=== PATIENT | female | born 1990 | race Caucasian/White ===

== ENCOUNTER 2018-11-25 14:03 | Emergency (ER) | payer OTHER ==
--- NOTE | 2018-11-25 15:00 | ER Document Report ---
ED Medical Screen (RME) - General Chief Complaint: Abdominal Pain Stated Complaint: ABDOMINAL PAIN Time Seen by Provider: 11/25/18 14:53 TRAVEL OUTSIDE OF THE [place] IN LAST 30 DAYS: No - Related Data Allergies/Adverse Reactions: No Known Allergies Allergy (Verified 11/25/18 14:03) Past Medical History Renal/ Medical History: Denies: Hx Peritoneal Dialysis Past Surgical History: Reports: Hx Section - x2 Physical Exam - Vital signs Vitals: Temp Pulse Resp BP Pulse Ox 97.7 F 101 H 16 128/81 H 99 11/25/18 14:06 11/25/18 14:06 11/25/18 14:06 11/25/18 14:06 11/25/18 14:06 Course - Re-evaluation Re-evalutation: 11/25/18 15:00 27-year-old female without known medical problems that presents for evaluation of lower abdominal pain. I have seen and evaluated this patient in rapid medical screening exam, there will require reexamination and further assessment with possible diagnostics and disposition determination by secondary provider. - Vital Signs Vital signs: Temp Pulse Resp BP Pulse Ox 97.7 F 101 H 16 128/81 H 99 11/25/18 14:06 11/25/18 14:06 11/25/18 14:06 11/25/18 14:06 11/25/18 14:06 Doctor's Discharge - Discharge Referrals: ETHAN SHAH MD [Primary Care Provider] - Follow up as needed
[2018-11-25 15:48] LABS: APPEARANCE,URINE CLOUDY; BILIRUBIN,URINE NEGATIVE (NEGATIVE); COLOR,URINE YELLOW; GLUCOSE, URINE NEGATIVE (NEGATIVE); KETONES,URINE NEGATIVE (NEGATIVE); LEUKOCYTE ESTERASE,URINE MODERATE (NEGATIVE); NITRITE,URINE POSITIVE (NEGATIVE); PROTEIN,URINE NEGATIVE (NEGATIVE); URINE SPECIFIC GRAVITY 1.014; UROBILINOGEN,URINE NEGATIVE mg/dL (<2.0)
--- NOTE | 2018-11-25 17:05 | RADIOLOGY REPORT (SQ) ---
EXAM DESCRIPTION: U/S NON OB PEL TV W/DOPPLER COMPLETED DATE/TIME: 11/25/2018 4:30 pm REASON FOR STUDY: probable ruptured cyst COMPARISON: None. TECHNIQUE: Dynamic and static grayscale images acquired of the pelvis via transvaginal approach and recorded on PACS. Additional selected color Doppler and spectral images recorded. LIMITATIONS: None. FINDINGS: UTERUS: The uterus measures 9.1 x 4.7 x 4.9 cm. . ENDOMETRIAL STRIPE: The endometrial stripe measures 1.2 cm. CERVIX: The cervix measures 3.6 cm. No nabothian cysts. RIGHT OVARY AND DOPPLER: Nonvisualized. LEFT OVARY AND DOPPLER: Nonvisualized. FREE FLUID: Free fluid in cul de sac. IMPRESSION: Small amount of free fluid posterior cul de sac. Otherwise ,normal transvaginal pelvic ultrasound TECHNICAL DOCUMENTATION: JOB ID: [id number] [employer]- All Rights Reserved Rev-04/07 Reading location - IP/workstation name: [email or web address]
[2018-11-25] MEDS ORDERED: CEPHALEXIN 500 MG CAPSULE PO ONE (17:22)
[2018-11-25] MEDS ORDERED: ONDANSETRON ODT 4 MG TAB (6 TAB/ER DISP) PO PRN (17:32)
--- NOTE | 2018-11-25 17:38 | ER Document Report ---
ED General - General Chief Complaint: Abdominal Pain Stated Complaint: ABDOMINAL PAIN Time Seen by Provider: 11/25/18 14:53 Notes: 27-year-old female with no past medical history presents to the emergency department for bilateral adnexal pain that radiates to the suprapubic area. She states that she has had abdominal pain for 3 days with some associated nausea. She denies fevers or chills. She describes the pain as cramping. She denies any urinary symptoms. She denies chest pain or shortness of breath. She denies any abnormal vaginal discharge. She denies any other symptoms. TRAVEL OUTSIDE OF THE [place] IN LAST 30 DAYS: No - Related Data Allergies/Adverse Reactions: No Known Allergies Allergy (Verified 11/25/18 14:03) Past Medical History - Social History Smoking Status: Never Smoker Family History: None Patient has suicidal ideation: No Patient has homicidal ideation: No Renal/ Medical History: Denies: Hx Peritoneal Dialysis Past Surgical History: Reports: Hx Section - x2 Review of Systems - Review of Systems Constitutional: See HPI EENT: No symptoms reported Cardiovascular: See HPI Respiratory: See HPI Gastrointestinal: See HPI Genitourinary: See HPI Female Genitourinary: No symptoms reported Musculoskeletal: No symptoms reported Skin: No symptoms reported Hematologic/Lymphatic: No symptoms reported Neurological/Psychological: No symptoms reported Physical Exam - Vital signs Vitals: Temp Pulse Resp BP Pulse Ox 97.7 F 101 H 16 128/81 H 99 11/25/18 14:06 11/25/18 14:06 11/25/18 14:06 11/25/18 14:06 11/25/18 14:06 - Notes Notes: Reviewed vital signs and nursing note as charted by RN. CONSTITUTIONAL: Well-appearing, well-nourished, acting appropriately for age HEAD: Normocephalic, atraumatic, no swelling EYES: PERRL, Conjunctivae clear, no drainage, EOMI, no scleral icterus ENT: External ears without lesions, External auditory canal is patent, airway patent, mucous membranes pink and moist CARD: Regular rate and rhythm, no murmurs, no rubs, no gallops, symmetric pulses RESP: The lungs are clear to auscultation bilaterally, no wheezing, no rales, no rhonchi. Respiratory rate and effort are normal, normal chest excursion. No respiratory distress, no retractions, no stridor, no nasal flaring, no accessory muscle use. ABD/GI: Normal bowel sounds, non-distended, soft, tenderness to palpation bilateral adnexal area with tenderness to palpation over suprapubic area., no rebound, no guarding, no palpable organomegaly EXT: Normal ROM in all joints, non-tender to palpation, no effusions, no edema SKIN: Normal color for age and race, warm, dry, good turgor, no acute lesions noted NEURO: No facial asymmetry, moves all extremities equally, motor and sensory function intact Course - Re-evaluation Re-evalutation: 11/25/18 17:35 Patient presents with symptoms consistent with an acute cystitis. Vitals wnl. No history of fever, flank pain, or constitution symptoms to suggest ascending infection at this time. Patient is well in appearance, tolerating oral intake without difficulty. No focal abdominal tenderness to suggest acute appendicitis, biliary pathology, acute pancreatitis, tubo-ovarian abscesses, or pelvic inflammatory disease. Patient will be started on antibiotics at this time. A culture has been sent. Transvaginal ultrasound performed which showed no evidence of ovarian cysts or any other masses. There was a small amount of free fluid identified in the cul-de-sac. They will be discharged with return precautions and follow-up recommendations. 11/25/18 17:38 - Vital Signs Vital signs: Temp Pulse Resp BP Pulse Ox 97.7 F 101 H 16 128/81 H 99 11/25/18 14:06 11/25/18 14:06 11/25/18 14:06 11/25/18 14:06 11/25/18 14:06 - Laboratory Laboratory results interpreted by me: 11/25/18 15:18 Urine Blood MODERATE H Urine Nitrite POSITIVE H Ur Leukocyte Esterase MODERATE H Discharge - Discharge Clinical Impression: Urinary tract infection Qualifiers: Urinary tract infection type: acute cystitis Hematuria presence: without hematuria Qualified Code(s): N30.00 - Acute cystitis without hematuria Condition: Good Disposition: HOME, SELF-CARE Instructions: Abdominal Pain ([facility]), Urinary Tract Infection ([facility]), Cephalexin ([facility]) Additional Instructions: Your urine shows findings consistent with a urinary tract infection. Please take all the antibiotics as directed even if your symptoms have improved. Please follow-up with your primary care physician as needed. Return to emergency room if you develop fever >101F, persistent vomiting, become lethargic, have severe pain in your sides, or any other symptoms that are concerning to you. Prescriptions: Cephalexin Monohydrate [Keflex 500 mg Capsule] 500 mg PO BID 7 Days capsule Referrals: ETHAN SHAH MD [Primary Care Provider] - Follow up as needed
[2018-11-25 18:13] VITALS: BP 125/78
== END 2018-11-25 18:13 | disposition home or self-care (01) ==
LOC: ER 14:03
DX: N30.00 Acute cystitis without hematuria (principal); R10.9 Unspecified abdominal pain; R11.0 Nausea
CPT/HCPCS: 36415; 76830; 81001; 84702; 87086; 87088; 87186; 93976; 99284

== ENCOUNTER → 2018-12-07 | Outpatient (CLI) | payer OTHER | LOC: RAD 14:02 | PROVIDERS: ATTEND Specialist | DX: Z53.9 Procedure and treatment not carried out, unspecified reason (principal) ==

== ENCOUNTER → 2019-02-02 | Outpatient (CLI) | payer OTHER ==
--- NOTE | 2019-02-02 16:36 | RADIOLOGY REPORT (SQ) ---
EXAM DESCRIPTION: HYSTEROSALPINGOGRAM; HYSTERO CATH/INJECTION COMPLETED DATE/TIME: 02/02/2019 4:02 pm REASON FOR STUDY: INFERTILITY COMPARISON: None. PROCEDURE: PRE-PROCEDURE: Procedure was explained to the patient. She was told to expect cramping du ring the procedure, and possible spotting post procedure. PROCEDURE: The cervix was prepped in sterile fashion. Under direct visual inspection, the cervix was cannulated with the hysterosalpingogram catheter and contrast injected. TECHNIQUE: Temporal fluoroscopic images acquired during the procedure stored to PACS. FLUOROSCOPY TIME: 21 seconds 3 images saved to PACS. LIMITATIONS: None. FINDINGS: UTERUS: No identified anomalies. No synechia. RIGHT ADNEXA: Normal size fallopian tube. Free spill of contrast into the peritoneal cavity. LEFT ADNEXA: Normal size fallopian tube. Free spill of contrast into the peritoneal cavity. POST PROCEDURE: The patient tolerated the procedure with no adverse effects. IMPRESSION: NORMAL HYSTEROSALPINGOGRAM. COMMENT: Quality ID 145: Final reports for procedures using fluoroscopy that document radiation exp osure indices, or exposure time and number of fluorographic images (if radiation exposure indices are not available) TECHNICAL DOCUMENTATION: JOB ID: [id number] [employer]- All Rights Reserved Reading location - IP/workstation name: [email or web address]
--- NOTE | 2019-02-02 16:36 | RADIOLOGY REPORT (SQ) ---
EXAM DESCRIPTION: HYSTEROSALPINGOGRAM; HYSTERO CATH/INJECTION COMPLETED DATE/TIME: 02/02/2019 4:02 pm REASON FOR STUDY: INFERTILITY COMPARISON: None. PROCEDURE: PRE-PROCEDURE: Procedure was explained to the patient. She was told to expect cramping du ring the procedure, and possible spotting post procedure. PROCEDURE: The cervix was prepped in sterile fashion. Under direct visual inspection, the cervix was cannulated with the hysterosalpingogram catheter and contrast injected. TECHNIQUE: Temporal fluoroscopic images acquired during the procedure stored to PACS. FLUOROSCOPY TIME: 21 seconds 3 images saved to PACS. LIMITATIONS: None. FINDINGS: UTERUS: No identified anomalies. No synechia. RIGHT ADNEXA: Normal size fallopian tube. Free spill of contrast into the peritoneal cavity. LEFT ADNEXA: Normal size fallopian tube. Free spill of contrast into the peritoneal cavity. POST PROCEDURE: The patient tolerated the procedure with no adverse effects. IMPRESSION: NORMAL HYSTEROSALPINGOGRAM. COMMENT: Quality ID 145: Final reports for procedures using fluoroscopy that document radiation exp osure indices, or exposure time and number of fluorographic images (if radiation exposure indices are not available) TECHNICAL DOCUMENTATION: JOB ID: [id number] [employer]- All Rights Reserved Reading location - IP/workstation name: [email or web address]
== END ==
LOC: RAD 12:56
PROVIDERS: ATTEND Specialist
DX: N97.9 Female infertility, unspecified (principal)
CPT/HCPCS: 58340; 74740

== ENCOUNTER 2019-04-01 17:31 | Emergency (ER) | payer OTHER ==
--- NOTE | 2019-04-01 17:59 | ER Document Report ---
ED General - General Chief Complaint: Abdominal Cramping Stated Complaint: ABDOMINAL CRAMPING Time Seen by Provider: 04/01/19 17:54 Primary Care Provider: ETHAN SHAH MD [Primary Care Provider] - Follow up in 3-5 days TRAVEL OUTSIDE OF THE [place] IN LAST 30 DAYS: No - HPI Notes: Patient is a 28-year-old female G3, P2 approximately 5 weeks who presents complaining of lower pelvic cramping over the last day and a half. Patient states that she was told by her doctor to come get evaluated. She is otherwise eating and drinking without difficulty. She is urinating normally and having normal bowel movements. No vaginal discharge, odor, or bleeding. Denies drug allergies. No previous history of miscarriage or . Denies any headache, fever, URI, sore throat, chest pain, palpitations, syncope, cough, shortness of breath, wheeze, dyspnea, nausea/vomiting/diarrhea, urinary retention, dysuria, hematuria, back pain, or rash. - Related Data Allergies/Adverse Reactions: No Known Allergies Allergy (Verified 04/01/19 17:31) Past Medical History - Social History Smoking Status: Never Smoker Family History: None Patient has suicidal ideation: No Patient has homicidal ideation: No Renal/ Medical History: Denies: Hx Peritoneal Dialysis Past Surgical History: Reports: Hx Section - x2 Review of Systems - Review of Systems -: Yes All other systems reviewed and negative Physical Exam - Vital signs Vitals: Temp Pulse Resp BP Pulse Ox 99.1 F 112 H 18 148/89 H 100 04/01/19 17:32 04/01/19 17:32 04/01/19 17:32 04/01/19 17:32 04/01/19 17:32 - Notes Notes: PHYSICAL EXAMINATION: GENERAL: Well-appearing, well-nourished and in no acute distress. LUNGS: Breath sounds clear to auscultation bilaterally and equal. No wheezes rales or rhonchi. HEART: Regular rate and rhythm without murmurs, rubs, gallops. ABDOMEN: Soft, nontender, nondistended abdomen. No guarding, no rebound. No masses appreciated. Normal bowel sounds present. No CVA tenderness bilaterally. Musculoskeletal: FROM to passive/active. Strength 5+/5. Extremities: No cyanosis, clubbing, or edema b/l. Peripheral pulses 2+. Capillary refill less than 3 seconds. NEUROLOGICAL: Normal speech, normal gait. PSYCH: Normal mood, normal affect. SKIN: Warm, Dry, normal turgor, no rashes or lesions noted. Course - Re-evaluation Re-evalutation: 04/01/19 19:10 Patient is an afebrile, well-hydrated, 28-year-old female who presents to the ED with cramping in early . Vitals are acceptable without any significant tachycardia, tachypnea, or hypoxia. PE is otherwise unremarkable. UA unremarkable for acute pathology. HCG low at 207. TVUS unremarkable at this time due to most likely early preg vs spont miscarriage. Patient is nontoxic- appearing is tolerating p.o. without any difficulties. No other labs or imaging warranted at this time based on H&P. Low suspicion/risk for acute appendicitis, bowel obstruction, acute cholecystitis, acute cholangitis, perforated diverticulitis, incarcerated hernia, pancreatitis, perforated ulcer, peritonitis, sepsis, pelvic inflammatory disease, ectopic (within reason at this time-cannot adequately r/o), tubo-ovarian abscess, ovarian torsion, or other systemic emergent condition at this time. Patient is aware that her condition can change from initial presentation and she needs to monitor symptoms closely and seek medical attention if any acute changes. She has no abd pain or tenderness. Recheck HCG in 2-3 days, may need repeat US next week as well. Conservative measures otherwise for symptoms. Recheck with your PCM/OBGYN in 3-5 days. Return to the ED with any worsening/concerning symptoms otherwise as reviewed in discharge. Patient is in agreement. - Vital Signs Vital signs: Temp Pulse Resp BP Pulse Ox 99.1 F 112 H 18 148/89 H 100 04/01/19 17:32 04/01/19 17:32 04/01/19 17:32 04/01/19 17:32 04/01/19 17:32 - Laboratory Laboratory results interpreted by me: 04/01/19 04/01/19 18:00 18:00 Beta HCG, Quant 207.91 H Urine Blood SMALL H Discharge - Discharge Clinical Impression: Pelvic cramping Condition: Stable Disposition: HOME, SELF-CARE Additional Instructions: As reviewed, your hormone level does indicate that you are , but very early vs you having a spontaneous miscarriage. The ultrasound did not show any intrauterine at this time. You will need to have your hormone level rechecked in 2 to 3 days and possibly another ultrasound in the next 1 to 2 weeks. Maintain fluid intake Proper hygienic technique Keep the skin clean Tylenol/ibuprofen as needed F/u with your PCM/OBGYN in 3-5 days for a recheck Return to the ED with any development of AWGNER/fever, trouble with vision, eye redness, worsening pain, urethral discharge, urinary retention, blood in the urine, flank pain, abdominal pain, n/v, Chest Pain, shortness of breath, joint pains, trouble breathing, or any other worsening/concerning symptoms as needed otherwise. Forms: Elevated Blood Pressure, Follow-Up Laboratory Testing Referrals: ETHAN SHAH MD [Primary Care Provider] - Follow up in 3-5 days
[2019-04-01 18:26] LABS: APPEARANCE,URINE SLIGHTLY-CLOUDY; BILIRUBIN,URINE NEGATIVE (NEGATIVE); COLOR,URINE STRAW; GLUCOSE, URINE NEGATIVE (NEGATIVE); KETONES,URINE NEGATIVE (NEGATIVE); LEUKOCYTE ESTERASE,URINE NEGATIVE (NEGATIVE); NITRITE,URINE NEGATIVE (NEGATIVE); PROTEIN,URINE NEGATIVE (NEGATIVE); URINE SPECIFIC GRAVITY 1.003; UROBILINOGEN,URINE NEGATIVE mg/dL (<2.0)
--- NOTE | 2019-04-01 18:50 | RADIOLOGY REPORT (SQ) ---
EXAM DESCRIPTION: U/S OB TRANSVAG W/DOPPLER COMPLETED DATE/TIME: 04/01/2019 6:27 pm REASON FOR STUDY: preg approx 5wks, cramping COMPARISON: None. TECHNIQUE: Transvaginal static and realtime grayscale images acquired of the pelvis. Additional santa cted spectral and color Doppler images recorded. All images stored on PACs. CLINICAL AGE: 4 week 5 day BHCG: Not available LIMITATIONS: None. FINDINGS: UTERUS: No visualized intrauterine . RIGHT ADNEXA: Normal ovary with normal vascular flow. No adnexal free fluid. No adnexal masses. LEFT ADNEXA: Normal vascular flow. No adnexal free fluid. 2.6 cm probable cyst. No suspicious features. FREE FLUID: None. OTHER: No other significant finding. IMPRESSION: NO VISUALIZED INTRA- OR EXTRAUTERINE . bHCG LEVEL TOO LOW TO EXPECT VISUALIZATION OF . ECTOPIC CANNOT BE EXCLUDED. FOLLOW-UP ULTRASOUND AND SERIAL BHCG LEVELS STRONGLY RECOMMENDED TO ACCURATELY ASSESS STATU S. TECHNICAL DOCUMENTATION: JOB ID: [id number]- All Rights Reserved Reading location - IP/workstation name: [email or web address]
[2019-04-01 19:31] VITALS: BP 136/74
== END 2019-04-01 19:31 | disposition home or self-care (01) ==
LOC: ER 17:31
DX: O26.899 Other specified pregnancy related conditions, unspecified trimester (principal); R10.2 Pelvic and perineal pain; Z3A.00 Weeks of gestation of pregnancy not specified
CPT/HCPCS: 36415; 76817; 81001; 84702; 93976; 99284

== ENCOUNTER 2019-10-30 16:30 | Outpatient (CLI) | payer OTHER ==
[2019-10-30 17:03] LABS: APPEARANCE,URINE SLIGHTLY-CLOUDY; BILIRUBIN,URINE NEGATIVE (NEGATIVE); COLOR,URINE STRAW; GLUCOSE, URINE NEGATIVE (NEGATIVE); KETONES,URINE 20 mg/dL (NEGATIVE); LEUKOCYTE ESTERASE,URINE NEGATIVE (NEGATIVE); NITRITE,URINE NEGATIVE (NEGATIVE); PROTEIN,URINE NEGATIVE (NEGATIVE); URINE SPECIFIC GRAVITY 1.002; UROBILINOGEN,URINE NEGATIVE mg/dL (<2.0)
[2019-10-30 17:15] LABS: URINE AMPHETAMINES SCREEN NEGATIVE; URINE BARBITURATES SCREEN NEGATIVE; URINE BENZODIAZEPINES SCREEN NEGATIVE; URINE COCAINE SCREEN NEGATIVE; URINE MARIJUANA (THC) SCREEN NEGATIVE; URINE METHADONE SCREEN NEGATIVE; URINE PHENCYCLIDINE SCREEN NEGATIVE
[2019-10-30] MEDS ORDERED: HYDROXYZINE PAMOATE 50 MG CAPSULE ONE (18:23)
[2019-10-30] MEDS ORDERED: HYDROXYZINE PAMOATE 50 MG CAPSULE PO ONE (18:25)
== END 2019-10-30 18:33 | disposition home or self-care (01) ==
LOC: LC 16:30
PROVIDERS: ATTEND Obstetrics & Gynecology
PROC: 4A1HXCZ Monitoring of Products of Conception, Cardiac Rate, External Approach (ICD-10-PCS; principal; 2019-10-30)
DX: O99.283 Endocrine, nutritional and metabolic diseases complicating pregnancy, third trimester (principal); E86.0 Dehydration; Z3A.34 34 weeks gestation of pregnancy
CPT/HCPCS: 80307; 81001; 84112

== ENCOUNTER 2019-11-15 06:04 | Inpatient (IN) | payer OTHER ==
[2019-11-27 12:11] LABS: ABSOLUTE LYMPHOCYTES (AUTO) 2.2 10^3/uL (0.5-4.7); ABSOLUTE MONOCYTES (AUTO) 0.5 10^3/uL (0.1-1.4); ABSOLUTE NEUT (AUTO) 6.4 10^3/uL (1.7-8.2); BASOPHILS % (AUTO) 0.1 % (0-2); EOSINOPHILS % (AUTO) 0.3 % (0-6); HEMATOCRIT 36.4 % (36.0-47.0); HEMOGLOBIN 12.4 g/dL (12.0-15.5); LYMPHOCYTES % (AUTO) 23.9 % (13-45); MEAN CORPUSCULAR HEMOGLOBIN 27.4 pg (27.0-33.4); MEAN CORPUSCULAR VOLUME 80 fl (80-97); MONOCYTES % (AUTO) 5.4 % (3-13); PLATELET COUNT 262 10^3/uL (150-450); RED BLOOD COUNT 4.53 10^6/uL (3.72-5.28); RED CELL DISTRIBUTION WIDTH 15.7 % (11.5-14.0); SEGMENTED NEUTROPHILS % (AUTO) 70.3 % (42-78); TOTAL CELLS COUNTED % (AUTO) 100 %; WHITE BLOOD COUNT 9.1 10^3/uL (4.0-10.5)
[2019-11-27 12:17] LABS: APPEARANCE,URINE CLEAR; BILIRUBIN,URINE NEGATIVE (NEGATIVE); COLOR,URINE STRAW; GLUCOSE, URINE NEGATIVE (NEGATIVE); KETONES,URINE NEGATIVE (NEGATIVE); LEUKOCYTE ESTERASE,URINE NEGATIVE (NEGATIVE); NITRITE,URINE NEGATIVE (NEGATIVE); PROTEIN,URINE NEGATIVE (NEGATIVE); URINE SPECIFIC GRAVITY 1.003; UROBILINOGEN,URINE NEGATIVE mg/dL (<2.0)
[2019-11-27 12:43] LABS: URINE AMPHETAMINES SCREEN NEGATIVE; URINE BARBITURATES SCREEN NEGATIVE; URINE BENZODIAZEPINES SCREEN NEGATIVE; URINE COCAINE SCREEN NEGATIVE; URINE MARIJUANA (THC) SCREEN NEGATIVE; URINE METHADONE SCREEN NEGATIVE; URINE PHENCYCLIDINE SCREEN NEGATIVE
[2019-11-28] MEDS ORDERED: LIDOCAINE 0.5% INJ-PF (5 MG/ML) 50 ML SDV SUBCUT PRN (05:00)
[2019-11-28] MEDS ORDERED: CEFAZOLIN SODIUM 2 GM in DEXTROSE 5%-WATER 100 ML IV PRN (05:00)
[2019-11-28] MEDS: RINGERS SOLUTION,LACTATED 1,000 ML IV PRN ×3 (06:15→17:27)
[2019-11-28] MEDS ORDERED: MIDAZOLAM 2 MG/2 ML INJ ONE (07:13)
[2019-11-28] MEDS ORDERED: OXYTOCIN 10 UNIT/ML VIAL ONE (07:13)
[2019-11-28] MEDS ORDERED: FENTANYL CITRATE INJ/PF 100 MCG/2 ML AMPUL ONE (07:13)
[2019-11-28] MEDS ORDERED: OXYTOCIN/NORMAL SALINE 20 UNIT/1,000 ML RTUINJ ONE (07:14)
[2019-11-28] MEDS ORDERED: ACETAMINOPHEN 1,000 MG/100 ML RTUPB IV ONE (07:14)
[2019-11-28] MEDS ORDERED: ONDANSETRON HCL INJ/PF 4 MG/2 ML SDV ONE (07:14)
[2019-11-28] MEDS ORDERED: LIDOCAINE 2% INJ-PF (20 MG/ML) 10 ML AMPUL ONE ×2 (07:15)
[2019-11-28] MEDS ORDERED: ONDANSETRON HCL INJ/PF 4 MG/2 ML SDV IV PRN (07:29)
[2019-11-28] MEDS ORDERED: PROMETHAZINE HCL INJ 25 MG/1 ML VIAL IV PRN ×2 (07:29→08:59)
[2019-11-28] MEDS ORDERED: MORPHINE SULFATE 10 MG/ML INJ IV PRN (07:29)
[2019-11-28] MEDS ORDERED: OXYCODONE-ACETAMINOPHEN 5-325 MG TABLET PO PRN ×3 (07:29→08:59)
[2019-11-28] MEDS ORDERED: FENTANYL CITRATE INJ/PF 100 MCG/2 ML AMPUL IV PRN ×3 (07:29)
[2019-11-28] MEDS ORDERED: DIPHENHYDRAMINE HCL 50 MG/ML VIAL IV PRN (07:29)
[2019-11-28] MEDS ORDERED: DIPH/PERTUSS(ACELL)/TETANUS VAC/PF 0.5 ML SYR (>=10YO) IM PRN (08:59)
[2019-11-28] MEDS ORDERED: HYDROMORPHONE HCL INJ/PF 2 MG/ML AMPULE IV PRN (08:59)
[2019-11-28] MEDS ORDERED: RINGERS SOLUTION,LACTATED 1,000 ML IV PRN (08:59)
[2019-11-28] MEDS ORDERED: OXYTOCIN/NORMAL SALINE 20 UNIT/1,000 ML RTUINJ IV PRN (08:59)
[2019-11-28] MEDS ORDERED: MEASLES,MUMPS&RUBELLA VACC/PF 0.5 ML VIAL SUBCUT PRN (08:59)
[2019-11-28] MEDS ORDERED: ACETAMINOPHEN 325 MG TABLET PO PRN (08:59)
[2019-11-28] MEDS ORDERED: ACETAMINOPHEN 1,000 MG/100 ML RTUPB IV PRN (08:59)
--- NOTE | 2019-11-28 09:02 | PDOC DELIVERY SUMMARY ---
Delivery Summary - Maternal Hx : III Hx # Term Pregnancies: 3 SUKHI: 12/04/19 Ruptured Membranes: AROM Time of Rupture: 08:22 Fluids: Clear - Delivery Presentation: Vertex Heart Rate Monitoring: Done Pre-Operatively Support Person Present: Yes Location: OR : Scheduled, Repeat Placenta: Within Normal Limits Delivery of Placenta Date: 11/28/19 Delivery of Placenta Time: 08:24 - Medications Type of Anesthesia:: Spinal - Assess and Care Baby 1 Male Delivery of Infant Date: 11/28/19 Delivery of Time: 08:23 at 1 minute: 8 at 5 minutes: 9 Preprinted Number On Band: [id number] Skin to Skin: Yes Skin to Skin (Mins): 2 To Nursery At: 08:31 Mode of Transport: Bassinet Delivery Weight: 4,255 Infant Delivery Length: 22 in - Delivery Personnel Radiation Protection Engineer: EMILIANA ARITA RN: BAUTISTA HEAD MD: GAVIN BOLES
--- NOTE | 2019-11-28 09:03 | Operative Report ---
Operative Report DATE OF SURGERY: 11/28/19 PREOPERATIVE DIAGNOSIS: Repeat to prevent risk from uterine rupture POSTOPERATIVE DIAGNOSIS: Same OPERATION: Repeat via low transverse uterine incision SURGEON: GAVIN BOLES ANESTHESIA: Spinal TISSUE REMOVED OR ALTERED: Placenta COMPLICATIONS: None ESTIMATED BLOOD LOSS: 250 cc INTRAOPERATIVE FINDINGS: Viable male . Some adhesions of the uterus to the anterior abdominal wall. PROCEDURE: Patient was taken to the OR and placed in supine position after her spinal anesthesia. She is prepared and draped in sterile fashion. [place] was placed for drainage of the bladder. Low transverse incision was made and carried down the level of the fascia. The fascial incision was made with knife and extended bilaterally with curved Ramos scissors. The fascia was off the rectus muscles using sharp and blunt dissection. The rectus muscles are in the midline. The peritoneum was entered without incident. Bladder blade was placed in uterine segment was identified. A low transverse incision was made creating a bladder flap. Bladder blade was placed low transverse uterine incision was made with the knife and extended with fingertips. The baby was delivered with some fundal pressure. Mouth and nose were suctioned free. The cord is doubly clamped and cut. Baby is passed off to the customer support consultant in attendance. The placenta was manually extracted with trailing membranes. The uterus was externalized wrapped in a moist lap sponge. Uterine contents wiped free. Uterus was closed with a running locking layer of 0 chromic suture using the second layer to imbricate the first completing a double layer closure of the uterus. The serosa was closed with a running 2-0 chromic stitch. The pelvis was irrigated and suctioned free of fluid the uterus was replaced in the abdomen. The abdominal wall peritoneum was closed with running 2-0 chromic stitch. Fascia was closed with a running 0 Vicryl in 2 segments. Pasha's layer was brought together with 0 plain gut stitch and the skin was closed with running subcuticular 4-0 undyed Vicryl stitch. The wound was dressed mother and baby did well.
[2019-11-28] MEDS ORDERED: DIPHENHYDRAMINE HCL 50 MG/ML VIAL ONE (09:10)
[2019-11-28] MEDS: MEPERIDINE HCL/PF INJ 25 MG/1 ML DISP.SYRIN IV PRN ×2 (09:41→10:09)
[2019-11-28] MEDS ORDERED: MEPERIDINE HCL/PF INJ 25 MG/1 ML DISP.SYRIN ONE ×2 (09:41→10:08)
[2019-11-28] MEDS ORDERED: GLYCOPYRROLATE 1 MG/5 ML VIAL ONE (10:27)
[2019-11-28] MEDS ORDERED: LIDOCAINE 2% INJ-PF (20 MG/ML) 2 ML AMPUL ONE (10:27)
[2019-11-28] MEDS ORDERED: KETOROLAC TROMETHAMINE 60 MG/2 ML SDV ONE (10:27)
[2019-11-28] MEDS ORDERED: HYDROMORPHONE HCL INJ/PF 2 MG/ML AMPULE ONE (10:53)
[2019-11-28] MEDS ORDERED: IBUPROFEN 800 MG TABLET PO SCH (12:00)
[2019-11-28] MEDS: OXYCODONE-ACETAMINOPHEN 5-325 MG TABLET PO PRN ×2 (13:32→17:20)
[2019-11-28] MEDS: DOCUSATE SODIUM 100 MG CAPSULE PO SCH ×2 (17:22→23:19)
[2019-11-28] MEDS: KETOROLAC TROMETHAMINE INJ/PF 30 MG/1 ML SDV IV SCH ×2 (21:33→23:20)
[2019-11-28] MEDS: SIMETHICONE 80 MG TAB.CHEW PO PRN (21:43)
[2019-11-28] MEDS: PRENATAL VITAMIN W DHA CAPSULE PO SCH (23:19)
[2019-11-29] MEDS: OXYCODONE-ACETAMINOPHEN 5-325 MG TABLET PO PRN ×4 (03:50→19:23)
[2019-11-29] MEDS: IBUPROFEN 800 MG TABLET PO SCH ×4 (06:08→23:06)
[2019-11-29 06:38] LABS: HEMATOCRIT 31.4 % (36.0-47.0); HEMOGLOBIN 10.6 g/dL (12.0-15.5); MEAN CORPUSCULAR HEMOGLOBIN 27.4 pg (27.0-33.4); MEAN CORPUSCULAR HGB CONC 33.7 g/dL (32.0-36.0); MEAN CORPUSCULAR VOLUME 81 fl (80-97); PLATELET COUNT 209 10^3/uL (150-450); RED BLOOD COUNT 3.87 10^6/uL (3.72-5.28); RED CELL DISTRIBUTION WIDTH 15.8 % (11.5-14.0); WHITE BLOOD COUNT 10.4 10^3/uL (4.0-10.5)
[2019-11-29] MEDS: DOCUSATE SODIUM 100 MG CAPSULE PO SCH ×2 (09:25→19:23)
[2019-11-29] MEDS: PRENATAL VITAMIN W DHA CAPSULE PO SCH (09:25)
--- NOTE | 2019-11-29 12:14 | PDOC PROGRESS REPORT ---
Subjective-OB Progress Note for:: 11/29/19 Physical Exam (OB) Vital Signs: Temp Pulse Resp BP Pulse Ox 97.7 F 99 16 140/79 H 98 11/29/19 07:54 11/29/19 07:54 11/29/19 07:54 11/29/19 07:54 11/29/19 07:54 Intake & Output 11/28/19 11/29/19 11/30/19 06:59 06:59 06:59 Intake Total 2301 1300 Output Total 2000 Balance 300 1300 Weight 108.86 kg - PIH/Pre-Eclampsia DTR's: 1 + Clonus: Negative Headache: Absent Epigastric Pain: No Visual Changes: No - Dressing Removed: No Incision: Dressing Closure Type: op site - Bilateral Tubal Ligation Dressing Removed: No - Lochia Lochia Amount: Scant < 10 ml Lochia Color: Rubra/Red - Abdomen Description: Soft Hernia Present: No Bowel Sounds: Normoactive Flatus Presence: Present Stool: No Fundal Description: Firm, Midline Fundal Height: u/u - u/2 Objective-Diagnostic Laboratory: 11/29/19 06:22 11/29/19 06:22 WBC 10.4 RBC 3.87 Hgb 10.6 L Hct 31.4 L MCV 81 MCH 27.4 MCHC 33.7 RDW 15.8 H Plt Count 209
[2019-11-29] MEDS: SIMETHICONE 80 MG TAB.CHEW PO PRN (19:28)
[2019-11-30] MEDS: OXYCODONE-ACETAMINOPHEN 5-325 MG TABLET PO PRN ×2 (03:34→10:56)
[2019-11-30] MEDS: IBUPROFEN 800 MG TABLET PO SCH ×2 (05:02→12:39)
[2019-11-30] MEDS: PRENATAL VITAMIN W DHA CAPSULE PO SCH (09:30)
[2019-11-30] MEDS: DOCUSATE SODIUM 100 MG CAPSULE PO SCH (09:31)
--- NOTE | 2019-11-30 15:17 | PDOC DISCHARGE SUMMARY ---
Impression - Admit/DC Date/PCP Admission Date/Primary Care Provider: 11/28/19 04:47 ETHAN SHAH MD Discharge Date: 11/30/19 - Discharge Diagnosis (1) Status post repeat low transverse section Is this a current diagnosis for this admission?: Yes - Additional Information Resuscitation Status: Full Code Discharge Diet: Regular Discharge Activity: Balance Activity w/Rest, No Lifting Over 10 Pounds, No Lifting/Push/Pulling, Pelvic Rest Referrals: ETHAN SHAH MD [Primary Care Provider] - Prescriptions: Ibuprofen [Motrin 800 mg Tablet] 800 mg PO Q8HP PRN #60 tablet PRN Reason: Oxycodone HCl/Acetaminophen [Percocet 5-325 mg Tablet] 1 tab PO Q4HP PRN #30 tablet PRN Reason: Home Medications: Vits96/Iron Fum/Folic [ Tablet] 1 each PO DAILY 09/02/19 Ibuprofen [Motrin 800 mg Tablet] 800 mg PO Q8HP PRN #60 tablet 11/30/19 Oxycodone HCl/Acetaminophen [Percocet 5-325 mg Tablet] 1 tab PO Q4HP PRN #30 tablet 11/30/19 HPI Gestational Age: 39 Reason(s) for Admission: Ceasarean Section-Repeat Procedures: NST Intrapartum Procedure(s): : Low Cervical, Transverse Results Laboratory Results: WBC 10.4 10^3/uL (4.0-10.5) 11/29/19 06:22 RBC 3.87 10^6/uL (3.72-5.28) 11/29/19 06:22 Hgb 10.6 g/dL (12.0-15.5) L 11/29/19 06:22 Hct 31.4 % (36.0-47.0) L 11/29/19 06:22 MCV 81 fl (80-97) 11/29/19 06:22 MCH 27.4 pg (27.0-33.4) 11/29/19 06:22 MCHC 33.7 g/dL (32.0-36.0) 11/29/19 06:22 RDW 15.8 % (11.5-14.0) H 11/29/19 06:22 Plt Count 209 10^3/uL (150-450) 11/29/19 06:22 Lymph % (Auto) 23.9 % (13-45) 11/27/19 11:00 [place] % (Auto) 5.4 % (3-13) 11/27/19 11:00 Eos % (Auto) 0.3 % (0-6) 11/27/19 11:00 Baso % (Auto) 0.1 % (0-2) 11/27/19 11:00 Absolute Neuts (auto) 6.4 10^3/uL (1.7-8.2) 11/27/19 11:00 Absolute Lymphs (auto) 2.2 10^3/uL (0.5-4.7) 11/27/19 11:00 Absolute Monos (auto) 0.5 10^3/uL (0.1-1.4) 11/27/19 11:00 Absolute Eos (auto) 0.0 10^3/uL (0.0-0.6) 11/27/19 11:00 Absolute Basos (auto) 0.0 10^3/uL (0.0-0.2) 11/27/19 11:00 Seg Neutrophils % 70.3 % (42-78) 11/27/19 11:00 Urine Color STRAW 11/27/19 11:00 Urine Appearance CLEAR 11/27/19 11:00 Urine pH 7.0 (5.0-9.0) 11/27/19 11:00 Ur Specific [place] 1.003 11/27/19 11:00 Urine Protein NEGATIVE mg/dL (NEGATIVE) 11/27/19 11:00 Urine Glucose (UA) NEGATIVE mg/dL (NEGATIVE) 11/27/19 11:00 Urine Ketones NEGATIVE mg/dL (NEGATIVE) 11/27/19 11:00 Urine Blood NEGATIVE (NEGATIVE) 11/27/19 11:00 Urine Nitrite NEGATIVE (NEGATIVE) 11/27/19 11:00 Urine Bilirubin NEGATIVE (NEGATIVE) 11/27/19 11:00 Urine Urobilinogen NEGATIVE mg/dL (<2.0) 11/27/19 11:00 Ur Leukocyte Esterase NEGATIVE (NEGATIVE) 11/27/19 11:00 Urine WBC (Auto) 2 /HPF 11/27/19 11:00 Urine RBC (Auto) 0 /HPF 11/27/19 11:00 Urine Bacteria (Auto) 2+ /HPF 11/27/19 11:00 Squamous Epi Cells Auto 1 /HPF 11/27/19 11:00 Urine Mucus (Auto) RARE /LPF 11/27/19 11:00 Urine Ascorbic Acid NEGATIVE (NEGATIVE) 11/27/19 11:00 Urine Opiates Screen NEGATIVE 11/27/19 11:00 Urine Methadone Screen NEGATIVE 11/27/19 11:00 Ur Barbiturates Screen NEGATIVE 11/27/19 11:00 Ur Phencyclidine Scrn NEGATIVE 11/27/19 11:00 Ur Amphetamines Screen NEGATIVE 11/27/19 11:00 U Benzodiazepines Scrn NEGATIVE 11/27/19 11:00 Urine Cocaine Screen NEGATIVE 11/27/19 11:00 U Marijuana (THC) Screen NEGATIVE 11/27/19 11:00 Blood Type O POSITIVE 11/27/19 11:00 Antibody Screen NEGATIVE 11/27/19 11:00 Plan Plan of Treatment: follow up in 1 week at [facility] for incision check
[2019-11-30 16:16] VITALS: BP 134/83
== END 2019-11-30 19:10 | disposition home or self-care (01) | DRG 788 ==
LOC: 2S 11-28 04:47
PROVIDERS: ADMIT Obstetrics & Gynecology; ATTEND Obstetrics & Gynecology
PROC: 10D00Z1 Extraction of Products of Conception, Low, Open Approach (ICD-10-PCS; principal; 2019-11-28 07:45)
DX: O34.211 Maternal care for low transverse scar from previous cesarean delivery (principal); Z3A.39 39 weeks gestation of pregnancy; Z37.0 Single live birth
CPT/HCPCS: 1961; 36415; 59025; 80307; 81001; 85025; 85027; 86850; 86900; 86901; 94799; J0131; J0690; J1170; J1200; J1885; J2175; J2250; J2405; J2590; J3010; J3490; J7060; J7120

== ENCOUNTER 2019-12-03 15:45 | Emergency (ER) | payer OTHER ==
--- NOTE | 2019-12-03 16:26 | ER Document Report ---
ED Medical Screen (RME) - General Chief Complaint: Post Problem Stated Complaint: BLOOD PRESSURE ISSUE Time Seen by Provider: 12/03/19 16:12 Primary Care Provider: BUDDY SINGH MD [Primary Care Provider] - Follow up as needed Mode of Arrival: Ambulatory Information source: Patient Notes: Otherwise healthy 28-year-old female presents emergency department with chief complaint of hypertension in the period. Patient reports she is 5 days post , states her blood pressure at home was 160/100. Denies any history of hypertension in the past, she did report she had a few episodes of high blood pressure while she was in the hospital having her baby recently. She states that she was told to come to the emergency department if her diastolic was over 100. Patient also reports headache and bilateral lower extremity edema. I did call and speak with the OB on-call, Dr. Pham who gave some direction on her work-up, she will initially be seen in the emergency department with plans to consult OB once her work-up is complete. I have greeted and performed a rapid initial assessment of this patient. A comprehensive ED assessment and evaluation of the patient, analysis of test results and completion of the medical decision making process will be conducted by additional ED providers. I have specifically instructed the patient or family members with the patient to immediately return to any nursing staff should anything change in the patient's condition or with their chief complaint. TRAVEL OUTSIDE OF THE [place] IN LAST 30 DAYS: No - Related Data Allergies/Adverse Reactions: No Known Allergies Allergy (Verified 12/03/19 16:14) Past Medical History - Social History Frequency of alcohol use: None - Past Medical History Cardiac Medical History: Denies: Hx Pulmonary Embolism Pulmonary Medical History: Denies: Hx Asthma, Hx Sleep Apnea, Hx Tuberculosis Neurological Medical History: Denies: Hx Cerebrovascular Accident, Hx Seizures Endocrine Medical History: Denies: Hx Hyperthyroidism, Hx Hypothyroidism Renal/ Medical History: Denies: Hx Kidney Stones, Hx Ovarian Cysts, Hx Peritoneal Dialysis, Hx Pelvic Inflammatory Disease Malignancy Medical History: Denies: Hx Breast Cancer, Hx Cervical Cancer, Hx Ovarian Cancer Musculoskeltal Medical History: Denies Hx Fibromyalgia Traumatic Medical History: Denies: Hx Fractures Past Surgical History: Reports: Hx Section - x2 Physical Exam - Vital signs Vitals: Temp Pulse Resp BP Pulse Ox 98.4 F 77 20 155/95 H 99 12/03/19 15:53 12/03/19 15:53 12/03/19 15:53 12/03/19 15:53 12/03/19 15:53 Course - Vital Signs Vital signs: Temp Pulse Resp BP Pulse Ox 98.4 F 77 20 155/95 H 99 12/03/19 15:53 12/03/19 15:53 12/03/19 15:53 12/03/19 15:53 12/03/19 15:53 Doctor's Discharge - Discharge Referrals: BUDDY SINGH MD [Primary Care Provider] - Follow up as needed
--- NOTE | 2019-12-03 17:24 | ER Document Report ---
ED General - General Chief Complaint: Post Problem Stated Complaint: BLOOD PRESSURE ISSUE Time Seen by Provider: 12/03/19 16:12 Primary Care Provider: BUDDY SINGH MD [ACTIVE STAFF] - Follow up as needed Mode of Arrival: Ambulatory TRAVEL OUTSIDE OF THE [place] IN LAST 30 DAYS: No - Related Data Allergies/Adverse Reactions: No Known Allergies Allergy (Verified 12/03/19 16:14) Past Medical History - General Information source: Patient - Social History Smoking Status: Former Smoker Frequency of alcohol use: None Family History: None Patient has suicidal ideation: No Patient has homicidal ideation: No - Past Medical History Cardiac Medical History: Denies: Hx Pulmonary Embolism Pulmonary Medical History: Denies: Hx Asthma, Hx Sleep Apnea, Hx Tuberculosis Neurological Medical History: Denies: Hx Cerebrovascular Accident, Hx Seizures Endocrine Medical History: Denies: Hx Hyperthyroidism, Hx Hypothyroidism Renal/ Medical History: Denies: Hx Kidney Stones, Hx Ovarian Cysts, Hx Peritoneal Dialysis, Hx Pelvic Inflammatory Disease Malignancy Medical History: Denies: Hx Breast Cancer, Hx Cervical Cancer, Hx Ovarian Cancer Musculoskeletal Medical History: Denies Hx Fibromyalgia Traumatic Medical History: Denies: Hx Fractures Past Surgical History: Reports: Hx Section - x3 Physical Exam - Vital signs Vitals: Temp Pulse Resp BP Pulse Ox 98.4 F 77 20 155/95 H 99 12/03/19 15:53 12/03/19 15:53 12/03/19 15:53 12/03/19 15:53 12/03/19 15:53 - Notes Notes: Patient presents emergency department with elevated blood pressure today. She is is 155/100. Reports a frontal headaches been gone for the past 2 to 3 days. Headache and on gradually not a thunderclap headache not the worst that she is ever had. She took 1 dose of Tylenol without much relief she is not any blurred or double vision nausea vomiting chest pain or shortness of breath no dyspnea on exertion. He reports lower extremity edema has not improved since she deliv ered. She had a uncomplicated course with only minimal swelling of her ankles. Blood pressure was normal throughout the and on her previous previous history of hypertension she is had minimal vaginal bleeding Patient with history is unremarkable Social history does not smoke or drink at all Surgical history patient is 5 days from a due to previous Review of systems pertinent positives and negatives in HPI otherwise all the systems were reviewed and acutely negative PHYSICIAN EXAM -vital signs are noted triage note and note from triage reviewed GENERAL: Well-appearing, well-nourished and in __no acute distress____ HEAD: Atraumatic, normocephalic. EYES: Pupils equal round and reactive to light, extraocular movements intact, sclera anicteric, conjunctiva are normal. ENT: nares patent, oropharynx clear without exudates. Moist mucous membranes. NECK: supple without lymphadenopathy LUNGS: Breath sounds clear to auscultation bilaterally and equal. No wheezes rales or rhonchi. HEART: Regular rate and rhythm without murmurs there is no JVD ABDOMEN: Soft, nontender, normoactive bowel sounds. There is no tenderness in the right upper quadrant EXTREMITIES: No deformity, he has +4 edema to the knee NEUROLOGICAL: N alert and oriented x4. Cranial nerves he has symmetrical smile facies and shoulder shrug. His motor strength is 5/5 bilaterally in the upper and lower extremities. Toes downgoing. Sensation is intact to light touch is a negative Romberg and normal gait reflexes are symmetric with no hyperreflexia PSYCH: Normal mood, normal affect. SKIN: Warm, Dry, normal turgor, no rashes or lesions noted. BACK-nontender in the midline Differential diagnosis includes eclampsia hypertension Course - Re-evaluation Re-evalutation: 12/03/19 17:22 Addendum OB was initially contacted from triage and they requested patient be seen here reconsult them and they request patient be sent to the [facility] for further management of your labs x-ray and EKG - Vital Signs Vital signs: Temp Pulse Resp BP Pulse Ox 98.4 F 77 20 155/95 H 99 12/03/19 15:53 12/03/19 15:53 12/03/19 15:53 12/03/19 15:53 12/03/19 15:53 - Laboratory Result Diagrams: 12/03/19 16:57 12/03/19 16:57 Discharge - Discharge Clinical Impression: hypertension Disposition: HOME, SELF-CARE Additional Instructions: Sent to OB now Referrals: BUDDY SINGH MD [ACTIVE STAFF] - Follow up as needed
[2019-12-03 17:26] LABS: ABSOLUTE EOSINOPHILS # (AUTO) 0.1 10^3/uL (0.0-0.6); ABSOLUTE LYMPHOCYTES (AUTO) 2.3 10^3/uL (0.5-4.7); ABSOLUTE MONOCYTES (AUTO) 0.5 10^3/uL (0.1-1.4); ABSOLUTE NEUT (AUTO) 5.5 10^3/uL (1.7-8.2); BASOPHILS % (AUTO) 0.2 % (0-2); EOSINOPHILS % (AUTO) 1.6 % (0-6); HEMATOCRIT 34.6 % (36.0-47.0); HEMOGLOBIN 11.4 g/dL (12.0-15.5); LYMPHOCYTES % (AUTO) 27.3 % (13-45); MEAN CORPUSCULAR HEMOGLOBIN 26.9 pg (27.0-33.4); MEAN CORPUSCULAR HGB CONC 32.9 g/dL (32.0-36.0); MEAN CORPUSCULAR VOLUME 82 fl (80-97); MONOCYTES % (AUTO) 6.3 % (3-13); PLATELET COUNT 342 10^3/uL (150-450); RED BLOOD COUNT 4.22 10^6/uL (3.72-5.28); SEGMENTED NEUTROPHILS % (AUTO) 64.6 % (42-78); TOTAL CELLS COUNTED % (AUTO) 100 %; WHITE BLOOD COUNT 8.5 10^3/uL (4.0-10.5)
--- NOTE | 2019-12-03 17:36 | RADIOLOGY REPORT (SQ) ---
EXAM DESCRIPTION: CHEST 2 VIEWS COMPLETED DATE/TIME: 12/03/2019 5:29 pm REASON FOR STUDY: HIGH blood pressure COMPARISON: None. EXAM PARAMETERS: NUMBER OF VIEWS: two views TECHNIQUE: Digital Frontal and Lateral radiographic views of the chest acquired. RADIATION DOSE: NA LIMITATIONS: none FINDINGS: LUNGS AND PLEURA: Scattered linear densities, most pronounced in the left lung base. No l obar infiltrates, masses or pneumothorax. No pleural effusion. MEDIASTINUM AND HILAR STRUCTURES: No masses or contour abnormalities. HEART AND VASCULAR STRUCTURES: Heart normal size. No evidence for failure. BONES: No acute findings. HARDWARE: None in the chest. OTHER: No other significant finding. IMPRESSION: PROBABLE SCATTERED ATELECTASIS. TECHNICAL DOCUMENTATION: JOB ID: [id number] [employer]- All Rights Reserved Reading location - IP/workstation name: [email or web address]
[2019-12-03 17:52] VITALS: BP 138/80
[2019-12-03 18:00] LABS: ALBUMIN 3.3 g/dL (3.5-5.0); ALKALINE PHOSPHATASE 146 U/L (38-126); ANION GAP 9 (5-19); ASPARTATE AMINO TRANSFERASE 21 U/L (14-36); BILIRUBIN,DIRECT 0.3 mg/dL (0.0-0.4); BILIRUBIN,TOTAL 0.3 mg/dL (0.2-1.3); BLOOD UREA NITROGEN 6 mg/dL (7-20); CALCIUM 9.6 mg/dL (8.4-10.2); CARBON DIOXIDE 25 mmol/L (22-30); CHLORIDE 105 mmol/L (98-107); GLUCOSE 87 mg/dL (75-110); TOTAL PROTEIN 6.3 g/dL (6.3-8.2)
--- NOTE | 2019-12-05 05:38 | EKG REPORT ---
SEVERITY:- OTHERWISE NORMAL ECG - SINUS BRADYCARDIA SINUS ARRHYTHMIA : Confirmed by: Felecia Arreola MD 05-Dec-2019 05:37:05
== END 2019-12-03 17:51 | disposition home or self-care (01) ==
LOC: ER 15:45
DX: O16.5 Unspecified maternal hypertension, complicating the puerperium (principal); Z87.891 Personal history of nicotine dependence; R51 Headache
CPT/HCPCS: 36415; 71046; 80053; 83735; 84550; 85025; 93005; 93010; 99283

== ENCOUNTER 2019-12-03 18:02 | Outpatient (CLI) | payer OTHER ==
[2019-12-03 18:50] LABS: APPEARANCE,URINE CLEAR; BILIRUBIN,URINE NEGATIVE (NEGATIVE); COLOR,URINE STRAW; GLUCOSE, URINE NEGATIVE (NEGATIVE); KETONES,URINE NEGATIVE (NEGATIVE); LEUKOCYTE ESTERASE,URINE NEGATIVE (NEGATIVE); NITRITE,URINE NEGATIVE (NEGATIVE); PROTEIN,URINE NEGATIVE (NEGATIVE); URINE SPECIFIC GRAVITY 1.008; UROBILINOGEN,URINE NEGATIVE mg/dL (<2.0)
[2019-12-03] MEDS ORDERED: BUTALB/ACETAMINOPHEN/CAFFEINE 1 TAB EACH PO ONE (18:57)
[2019-12-03 19:03] LABS: UR PRO/CREAT RATIO RESULT 0.4 mg/mg (0.0-0.2); URINE CREATININE 34.3 mg/dL (16-327)
[2019-12-03] MEDS ORDERED: BUTALB/ACETAMINOPHEN/CAFFEINE 1 TAB EACH ONE (19:04)
== END 2019-12-03 21:38 | disposition home or self-care (01) ==
LOC: LC 18:02
PROVIDERS: ATTEND Obstetrics & Gynecology
DX: O16.5 Unspecified maternal hypertension, complicating the puerperium (principal)
CPT/HCPCS: 84156; 82570; 81001; J3490

== ENCOUNTER 2019-12-05 02:51 | Emergency (ER) | payer OTHER ==
[2019-12-05] MEDS ORDERED: NORMAL SALINE 1000 ML 1,000 ML IV ONE (04:07)
[2019-12-05 04:15] LABS: ABSOLUTE LYMPHOCYTES (AUTO) 1.9 10^3/uL (0.5-4.7); ABSOLUTE MONOCYTES (AUTO) 0.5 10^3/uL (0.1-1.4); ABSOLUTE NEUT (AUTO) 7.2 10^3/uL (1.7-8.2); BASOPHILS % (AUTO) 0.3 % (0-2); EOSINOPHILS % (AUTO) 0.3 % (0-6); HEMATOCRIT 34.2 % (36.0-47.0); HEMOGLOBIN 11.4 g/dL (12.0-15.5); LYMPHOCYTES % (AUTO) 19.6 % (13-45); MEAN CORPUSCULAR HEMOGLOBIN 27.1 pg (27.0-33.4); MEAN CORPUSCULAR HGB CONC 33.4 g/dL (32.0-36.0); MEAN CORPUSCULAR VOLUME 81 fl (80-97); MONOCYTES % (AUTO) 5.2 % (3-13); PLATELET COUNT 354 10^3/uL (150-450); RED BLOOD COUNT 4.21 10^6/uL (3.72-5.28); RED CELL DISTRIBUTION WIDTH 15.8 % (11.5-14.0); SEGMENTED NEUTROPHILS % (AUTO) 74.6 % (42-78); TOTAL CELLS COUNTED % (AUTO) 100 %; WHITE BLOOD COUNT 9.7 10^3/uL (4.0-10.5)
[2019-12-05 04:34] LABS: ALBUMIN 3.3 g/dL (3.5-5.0); ALKALINE PHOSPHATASE 153 U/L (38-126); ANION GAP 9 (5-19); ASPARTATE AMINO TRANSFERASE 23 U/L (14-36); BILIRUBIN,DIRECT 0.3 mg/dL (0.0-0.4); BILIRUBIN,TOTAL 0.3 mg/dL (0.2-1.3); BLOOD UREA NITROGEN 6 mg/dL (7-20); CALCIUM 9.4 mg/dL (8.4-10.2); CARBON DIOXIDE 23 mmol/L (22-30); CHLORIDE 108 mmol/L (98-107); GLUCOSE 97 mg/dL (75-110); TOTAL PROTEIN 6.4 g/dL (6.3-8.2)
--- NOTE | 2019-12-05 04:34 | ER Document Report ---
ED GI/ - General Mode of Arrival: Ambulatory Information source: Patient TRAVEL OUTSIDE OF THE [place] IN LAST 30 DAYS: No - HPI Patient complains to provider of: Abdominal pain, Vomiting, Other - Short of breath Timing/Duration: Intermittent Quality of pain: Sharp Severity at maximum: Moderate Severity in ED: Moderate Associated symptoms: Nausea, Shortness of breath, Vomiting Exacerbated by: Movement Relieved by: Denies Similar symptoms previously: Yes Recently seen / treated by doctor: Yes - Related Data Home Medications: MOTRIN. PERCOCET. BUSPAR <SHERITA ELIAS - Last Filed: 12/05/19 09:47> <GAGANDEEP MTZ - Last Filed: 12/05/19 13:08> - General Chief Complaint: Abdominal Pain Stated Complaint: BLOOD PRESSURE ISSUES Time Seen by Provider: 12/05/19 04:02 Primary Care Provider: GAVIN BOLES MD [Primary Care Provider] - Follow up as needed Notes: 28-year-old female presented to ED for complaint of right and left upper quadrant dull pain. States she has vomited about 1:00 in the morning once. No diarrhea. States she is short of breath when she tries to lay down. She states she has had swelling to both feet since Tuesday when she came in. She states she delivered her child a week ago within the emergency room on Tuesday for dizziness chest pain swelling in the feet and was seen in labor and delivery after her hospital visit. She states the swelling in her feet is been since that time. Her apical pulse is running between the mid 40s to mid 50s usually she states is around the 100. He states she came in today mainly because she just did not feel right. (SHERITA ELIAS) - Related Data Allergies/Adverse Reactions: Iodinated Contrast Media Allergy (Verified 12/05/19 09:14) Past Medical History - General Information source: Patient - Social History Smoking Status: Former Smoker Frequency of alcohol use: None Lives with: Family Family History: None Patient has suicidal ideation: No Patient has homicidal ideation: No - Past Medical History Cardiac Medical History: Reports: None Denies: Hx Pulmonary Embolism Pulmonary Medical History: Reports: None EENT Medical History: Reports: None Neurological Medical History: Reports: None Endocrine Medical History: Reports: None Renal/ Medical History: Reports: None Malignancy Medical History: Reports: None GI Medical History: Reports: None Musculoskeletal Medical History: Reports None Skin Medical History: Reports None Psychiatric Medical History: Reports: None Traumatic Medical History: Reports: None Infectious Medical History: Reports: None Past Surgical History: Reports: Hx Section - x3 - Immunizations Immunizations up to date: Yes Hx Diphtheria, Pertussis, Tetanus Vaccination: Yes <SHERITA ELIAS - Last Filed: 12/05/19 09:47> Review of Systems - Review of Systems Constitutional: No symptoms reported EENT: No symptoms reported Cardiovascular: No symptoms reported, Other - Bradycardia Respiratory: Short of breath Gastrointestinal: Abdominal pain, Vomiting Genitourinary: No symptoms reported Female Genitourinary: No symptoms reported Musculoskeletal: No symptoms reported Skin: No symptoms reported Hematologic/Lymphatic: No symptoms reported Neurological/Psychological: No symptoms reported <SHERITA ELIAS - Last Filed: 12/05/19 09:47> Physical Exam - Vital signs Vitals: Temp Pulse Resp BP Pulse Ox 98.9 F 53 L 16 148/83 H 99 12/05/19 03:22 12/05/19 03:22 12/05/19 03:22 12/05/19 03:22 12/05/19 03:22 Course - Laboratory Result Diagrams: 12/05/19 04:00 12/05/19 04:00 - Diagnostic Test Radiology reviewed: Image reviewed, Reports reviewed - EKG Interpretation by Me EKG shows normal: Sinus rhythm Rate: Bradycardia - Consults Elena Time consulted: 05:20 Dr Saez Time consulted: 04:40 Consulted provider: other - She stated I would need to consult cardiology Dr Barcenas Time consulted: 06:30 Consulted provider: other - He stated he would read the echocardiogram and consult but the patient will need to be admitted to hospitalist or DIRECTOR INFORMATION SECURITY Jessenia Mazariegos [facility] Time consulted: 07:20 <SHERITA ELIAS - Last Filed: 12/05/19 09:47> - Laboratory Result Diagrams: 12/05/19 04:00 12/05/19 04:00 <GAGANDEEP MTZ - Last Filed: 12/05/19 13:08> - Re-evaluation Re-evalutation: 12/05/19 07:13 Patient has developed a rash from the CTA dye. She has been treated with Benadryl, Solu-Medrol, and Pepcid IV. Patient is resting quietly. She states she is still having some pain bilateral chest through to the back with the same shortness of breath as before but no more. 12/05/19 08:10 After multiple consults with DIRECTOR INFORMATION SECURITY cardiology and hospitalist, the hospitalist that this patient could not stay at this hospital she needed a higher level of care as this looked like cardiomyopathy with possible heart failure. [facility] called. I spoke with the fellow Dr Nickerson who stated she would be accepted under Dr. Nation to the cardiac floor. The transfer line stated that they did not have beds and they would call me back with a bed assignment. Patient was informed and agreed to the transfer to [facility]. Patient's mother is at the bedside throughout this whole visit. (SHERITA ELIAS) 12/05/19 13:07 Reevaluated at this time and patient appears stable for transport (GAGANDEEP ALANIZ) - Vital Signs Vital signs: Temp Pulse Resp BP Pulse Ox 98.2 F 53 L 14 169/97 H 100 12/05/19 13:01 12/05/19 03:22 12/05/19 13:01 12/05/19 13:01 12/05/19 13:01 - Laboratory Laboratory results interpreted by me: 12/05/19 12/05/19 12/05/19 04:00 04:00 04:00 Hgb 11.4 L Hct 34.2 L RDW 15.8 H Chloride 108 H BUN 6 L Creatinine 0.44 L Alkaline Phosphatase 153 H NT-Pro-B Natriuret Pep 595 H Albumin 3.3 L Urine Blood 12/05/19 04:41 Hgb Hct RDW Chloride BUN Creatinine Alkaline Phosphatase NT-Pro-B Natriuret Pep Albumin Urine Blood LARGE H - Consults Elena Reason for consultation: 12/05/19 05:30 Bradycardia and a 28-year-old female who just delivered her child by on November 28. He stated there is no treatment needed now except for to work her up for a pulmonary emboli. (SHERITA ELIAS) Dr Saez Reason for consultation: 12/05/19 06:51 Bradycardia chest pain shortness of breath bilateral pedal edema 1 week 12/05/19 06:54 Consulted again at [address] showed that she had bilateral pleural effusions with heart rate staying in the 40s and 50s. She states the patient would need to be admitted to telemetry and she does not go to telemetry but she would be happy to consult but patient would need to be admitted to hospitalist or cardiology. (SHERITA ELIAS) Dr Barcenas Reason for consultation: 12/05/19 06:53 Bradycardia with chest pain shortness of breath bilateral pedal edema (SHERITA ELIAS) Jessenia Delilah NOBLES Reason for consultation: 12/05/19 08:06 Symptomatic bradycardia chest pain shortness of breath elevated BNP 1 week with bilateral pleural effusions. She stated that DIRECTOR INFORMATION SECURITY should admit this patient not the hospitalist. I spoke with the DIRECTOR INFORMATION SECURITY who stated she would talk with the hospitalist. Jaquelin Delilah [employer] then called me back and stated that she is with several of her providers and they had agreed that this patient had possible new onset heart failure with symptomatic bradycardia 1 week and that she needed to go to a higher level of ca re. I did explain to her that cardiology would consult as well as DIRECTOR INFORMATION SECURITY. She stated that this patient could not stay at this hospital she needed to go to a higher level of care. (SHERITA ELIAS) Discharge <SHERITA ELIAS - Last Filed: 12/05/19 09:47> <GAGANDEEP MTZ - Last Filed: 12/05/19 13:08> - Discharge Clinical Impression: Symptomatic bradycardia, RECENT POST Disposition: [facility] Referrals: GAVIN BOLES MD [Primary Care Provider] - Follow up as needed
--- NOTE | 2019-12-05 04:51 | RADIOLOGY REPORT (SQ) ---
EXAM DESCRIPTION: XR CHEST 2 VIEWS COMPLETED DATE/TME: 12/05/2019 04:03 CLINICAL HISTORY: 28 years, Female, short of breath COMPARISON: 12/03/2019 NUMBER OF VIEWS: Two TECHNIQUE: Two views of the chest LIMITATIONS: None. FINDINGS: The lungs are clear except for some left basilar subsegmental atelectasis. The heart is normal in size. There is no pneumothorax or pleural effusion. There is no acute fracture. IMPRESSION: No acute cardiopulmonary abnormality copyright 2011 [employer]- All Rights Reserved
[2019-12-05 05:02] LABS: APPEARANCE,URINE CLEAR; BILIRUBIN,URINE NEGATIVE (NEGATIVE); COLOR,URINE STRAW; GLUCOSE, URINE NEGATIVE (NEGATIVE); KETONES,URINE NEGATIVE (NEGATIVE); LEUKOCYTE ESTERASE,URINE NEGATIVE (NEGATIVE); NITRITE,URINE NEGATIVE (NEGATIVE); PROTEIN,URINE NEGATIVE (NEGATIVE); URINE SPECIFIC GRAVITY 1.003; UROBILINOGEN,URINE NEGATIVE mg/dL (<2.0)
--- NOTE | 2019-12-05 05:36 | EKG REPORT ---
SEVERITY:- OTHERWISE NORMAL ECG - SINUS BRADYCARDIA : Confirmed by: Felecia Arreola MD 05-Dec-2019 05:36:06
--- NOTE | 2019-12-05 06:16 | RADIOLOGY REPORT (SQ) ---
EXAM DESCRIPTION: CT CHEST ANGIOGRAPHY WITHOUT THEN WITH IV CONTRAST COMPLETED DATE/TME: 12/05/2019 05:26 CLINICAL HISTORY: 28 years Female, Chest pain shortness of breath Comparison: CR, same day. Technique: IV contrast. Coronal and sagittal reformat. 3d reconstruction. This exam was performed according to our departmental dose-optimization program, which includes automated exposure control, adjustment of the mA and/or kV according to patient size and/or use of iterative reconstruction technique.[facility]: Dose Right [facility]: CareDose [facility]: Dose Right [facility]: Teradose 4D [facility]: [employer] LIMITATIONS: None Findings: No pulmonary embolus. No right ventricular strain. Atelectasis/scar. Minimal bilateral pleural effusions. 0.3 cm likely benign micronodule the right upper lobe, image 42 of series 3 and 0.3 cm likely benign micronodule the left upper lobe, image 44 series 3; no follow-up recommended. Splenomegaly partially imaged. Old granulomatous disease. Inferior neck, axillae, mediastinum, airway, lymphatics, heart, vasculature, upper abdomen, and musculoskeleton appear otherwise unremarkable. Impression: 1. Splenomegaly partially imaged. 2. Minimal bilateral pleural effusions. 3. No pulmonary embolus.
[2019-12-05] MEDS ORDERED: METHYLPREDNISOLONE INJ 125 MG/2 ML SDV IV ONE (07:11)
[2019-12-05] MEDS ORDERED: DIPHENHYDRAMINE HCL 50 MG/ML VIAL IV ONE (07:11)
[2019-12-05] MEDS ORDERED: FAMOTIDINE INJ/PF 20 MG/2 ML SDV IV ONE (07:11)
[2019-12-05] MEDS ORDERED: ONDANSETRON HCL INJ/PF 4 MG/2 ML SDV IV ONE (07:18)
--- NOTE | 2019-12-05 11:01 | XCELERA REPORT ---
[address] [address] Transthoracic Echocardiogram Report Name: BAUTISTA MCKENNA Age: 28 yrs Gender: Female : 1990 Patient Status: Emergency Patient Location: ER Study Date: 12/05/2019 09:09 AM Height: 69 in Weight: 240 lb BSA: 2.2 m2 Procedure: A two-dimensional transthoracic echocardiogram with color flow and Doppler was performed. Study Quality: Fair. Reason For Study: bradycardia chest pain History: bradycardia chest pain. Ordering Physician: SHERITA ELIAS Performed By: Maru Ramirse Interpretation Summary The left ventricle is normal in size. There is normal left ventricular wall thickness. LV EF is > than 65% Left ventricular systolic function is normal. Doppler measurements suggest normal left ventricular diastolic function The left ventricular wall motion is normal. There is no thrombus. No ASD , VSD, or PFO seen. The right ventricle is normal in size and function. The right ventricle is not well visualized secondary to technical limitations The right atrium is normal. The left atrium is mildly dilated. There is no evidence of mitral valve prolapse. There is no vegetation seen on the mitral valve. There is no mitral valve stenosis. There is a mild amount of mitral regurgitation There is no aortic valvular vegetation. There is no aortic valve stenosis There is no LVOT obstruction. No aortic regurgitation is present. There is no tricuspid stenosis. There is a moderate amount of tricuspid regurgitation There is moderate pulmonary hypertension by echo RVSP is 49 to 54 mm of Hg , with RA mean of 10 to 15. There is no pulmonic valvular stenosis. There is no pulmonic valvular regurgitation. The aortic root is normal size. The inferior vena cava appeared normal and decreased < 50% with respiration (RAP 10-15 mmHg) There is no pericardial effusion. MMode/2D Measurements & Calculations RVDd: 3.5 cm LVIDd: 5.0 cm FS: 36.8 % Ao root diam: 3.2 cm IVSd: 0.80 cm LVIDs: 3.2 cm EDV(Teich): 119.9 ml Ao root area: 8.2 cm2 LVPWd: 0.79 cm ESV(Teich): 40.4 ml LA dimension: 4.9 cm EF(Teich): 66.3 % Doppler Measurements & Calculations MV E max rita: MV P1/2t max rita: Ao V2 max: LV V1 max P.3 cm/sec 123.8 cm/sec 149.9 cm/sec 6.1 mmHg MV A max rita: MV P1/2t: 70.3 msec Ao max P.0 mmHgLV V1 max: 69.7 cm/sec MVA(P1/2t): 3.1 cm2 123.0 cm/sec MV E/A: 1.6 MV dec slope: 515.6 cm/sec2 MV dec time: 0.18 sec PA V2 max: TR max rita: MV P1/2t-pr_phl: 90.8 cm/sec 313.8 cm/sec 70.3 msec PA max P.3 mmHgTR max P.4 mmHg Left Ventricle The left ventricle is normal in size. There is normal left ventricular wall thickness. LV EF is > than 65%. Left ventricular systolic function is normal. Doppler measurements suggest normal left ventricular diastolic function. The left ventricular wall motion is normal. There is no thrombus. No ASD , VSD, or PFO seen. Right Ventricle The right ventricle is normal in size and function. The right ventricle is not well visualized secondary to technical limitations. Atria The right atrium is normal. The left atrium is mildly dilated. Mitral Valve There is no evidence of mitral valve prolapse. There is no vegetation seen on the mitral valve. There is no mitral valve stenosis. There is a mild amount of mitral regurgitation. Aortic Valve There is no aortic valvular vegetation. There is no aortic valve stenosis. There is no LVOT obstruction. No aortic regurgitation is present. Tricuspid Valve There is no tricuspid stenosis. There is a moderate amount of tricuspid regurgitation. There is moderate pulmonary hypertension by echo. RVSP is 49 to 54 mm of Hg , with RA mean of 10 to 15. Pulmonic Valve There is no pulmonic valvular stenosis. There is no pulmonic valvular regurgitation. Great Vessels The aortic root is normal size. The inferior vena cava appeared normal and decreased < 50% with respiration (RAP 10-15 mmHg). Effusions There is no pericardial effusion. : SHERITA ELIAS, Felecia
[2019-12-05 13:04] VITALS: BP 169/97
== END 2019-12-05 13:00 | disposition short-term general hospital (02) ==
LOC: ER 02:51
DX: O90.9 Complication of the puerperium, unspecified (principal); R00.1 Bradycardia, unspecified; R11.2 Nausea with vomiting, unspecified; R06.02 Shortness of breath; R10.10 Upper abdominal pain, unspecified; O12.05 Gestational edema, complicating the puerperium
CPT/HCPCS: 93005; 99285; 96361; 96374; 96375; 86900; 86901; 36415; 86850; 83690; 85025; 80053; 81001; 84484; 83880; 93306; 71046; 71275; 93010; J1200; J2930; J2405; J7030; S0028

== ENCOUNTER → 2020-01-17 | Outpatient (CLI) | payer OTHER ==
[2020-01-17 14:09] LABS: ABSOLUTE BASOPHILS # (AUTO) 0.1 10^3/uL (0.0-0.2); ABSOLUTE EOSINOPHILS # (AUTO) 0.1 10^3/uL (0.0-0.6); ABSOLUTE LYMPHOCYTES (AUTO) 2.5 10^3/uL (0.5-4.7); ABSOLUTE MONOCYTES (AUTO) 0.5 10^3/uL (0.1-1.4); BASOPHILS % (AUTO) 0.6 % (0-2); EOSINOPHILS % (AUTO) 0.9 % (0-6); HEMATOCRIT 41.7 % (36.0-47.0); HEMOGLOBIN 14.2 g/dL (12.0-15.5); LYMPHOCYTES % (AUTO) 27.7 % (13-45); MEAN CORPUSCULAR VOLUME 79 fl (80-97); MONOCYTES % (AUTO) 5.3 % (3-13); PLATELET COUNT 361 10^3/uL (150-450); RED BLOOD COUNT 5.26 10^6/uL (3.72-5.28); RED CELL DISTRIBUTION WIDTH 16.6 % (11.5-14.0); SEGMENTED NEUTROPHILS % (AUTO) 65.5 % (42-78); TOTAL CELLS COUNTED % (AUTO) 100 %; WHITE BLOOD COUNT 9.2 10^3/uL (4.0-10.5)
[2020-01-17 14:45] LABS: ALBUMIN 4.4 g/dL (3.5-5.0); ALKALINE PHOSPHATASE 145 U/L (38-126); ANION GAP 8 (5-19); ASPARTATE AMINO TRANSFERASE 37 U/L (14-36); BILIRUBIN,TOTAL 0.5 mg/dL (0.2-1.3); BLOOD UREA NITROGEN 7 mg/dL (7-20); CARBON DIOXIDE 27 mmol/L (22-30); CHLORIDE 102 mmol/L (98-107); GLUCOSE 94 mg/dL (75-110); TOTAL PROTEIN 7.7 g/dL (6.3-8.2)
== END ==
LOC: OD 13:03
PROVIDERS: ATTEND Family Medicine Geriatric Medicine
DX: F41.1 Generalized anxiety disorder (principal); Z79.899 Other long term (current) drug therapy
CPT/HCPCS: 36415; 80053; 84443; 85025

== ENCOUNTER → 2020-02-12 | Outpatient (CLI) | payer OTHER ==
[2020-02-12 12:23] LABS: ALBUMIN 4.3 g/dL (3.5-5.0); ALKALINE PHOSPHATASE 118 U/L (38-126); ASPARTATE AMINO TRANSFERASE 18 U/L (14-36); BILIRUBIN,TOTAL 0.4 mg/dL (0.2-1.3); TOTAL PROTEIN 6.6 g/dL (6.3-8.2)
== END ==
LOC: OD 11:33
PROVIDERS: ATTEND Family Medicine Geriatric Medicine
DX: R94.5 Abnormal results of liver function studies (principal)
CPT/HCPCS: 36415; 80076

== ENCOUNTER → 2020-08-06 | Outpatient (CLI) | payer OTHER ==
[2020-08-06 14:48] LABS: ABSOLUTE EOSINOPHILS # (AUTO) 0.1 10^3/uL (0.0-0.6); ABSOLUTE MONOCYTES (AUTO) 0.4 10^3/uL (0.1-1.4); ABSOLUTE NEUT (AUTO) 4.6 10^3/uL (1.7-8.2); BASOPHILS % (AUTO) 0.5 % (0-2); EOSINOPHILS % (AUTO) 1.4 % (0-6); HEMATOCRIT 41.4 % (36.0-47.0); HEMOGLOBIN 14.2 g/dL (12.0-15.5); LYMPHOCYTES % (AUTO) 36.4 % (13-45); MEAN CORPUSCULAR HEMOGLOBIN 28.5 pg (27.0-33.4); MEAN CORPUSCULAR HGB CONC 34.3 g/dL (32.0-36.0); MEAN CORPUSCULAR VOLUME 83 fl (80-97); MONOCYTES % (AUTO) 4.7 % (3-13); PLATELET COUNT 349 10^3/uL (150-450); RED BLOOD COUNT 4.98 10^6/uL (3.72-5.28); RED CELL DISTRIBUTION WIDTH 13.5 % (11.5-14.0); TOTAL CELLS COUNTED % (AUTO) 100 %; WHITE BLOOD COUNT 8.1 10^3/uL (4.0-10.5)
[2020-08-06 16:40] LABS: ALBUMIN 4.6 g/dL (3.5-5.0); ALKALINE PHOSPHATASE 157 U/L (38-126); ANION GAP 12 (5-19); ASPARTATE AMINO TRANSFERASE 38 U/L (14-36); BILIRUBIN,DIRECT 0.3 mg/dL (0.0-0.4); BILIRUBIN,TOTAL 0.5 mg/dL (0.2-1.3); BLOOD UREA NITROGEN 9 mg/dL (7-20); CALCIUM 10.3 mg/dL (8.4-10.2); CARBON DIOXIDE 28 mmol/L (22-30); CHLORIDE 99 mmol/L (98-107); GLUCOSE 97 mg/dL (75-110); POTASSIUM 4.1 mmol/L (3.6-5.0); TOTAL PROTEIN 7.5 g/dL (6.3-8.2)
== END ==
LOC: OD 14:11
PROVIDERS: ATTEND Family Medicine Geriatric Medicine
DX: E66.3 Overweight (principal); F41.1 Generalized anxiety disorder; Z79.899 Other long term (current) drug therapy
CPT/HCPCS: 36415; 80053; 84443; 85025

== ENCOUNTER → 2020-08-22 | Outpatient (CLI) | payer OTHER ==
--- NOTE | 2020-08-22 12:21 | WOMENS IMAGING REPORT ---
EXAM DESCRIPTION: U/S ABDOMEN LIMITED IMAGES COMPLETED DATE/TIME: 08/22/2020 10:52 am REASON FOR STUDY: R94.5 ABNORMAL RESULTS OF LIVER FUNCTION STUDIES R94.5 ABNORMAL RESULTS OF LIVER FUNCTION STUDIES COMPARISON: None. TECHNIQUE: Dynamic and static grayscale images acquired of the abdomen and recorded on PACS. Additio nal selected color Doppler and spectral images recorded. LIMITATIONS: None. FINDINGS: PANCREAS: No masses. Visualized pancreatic duct normal caliber. LIVER: No masses. Normal echotexture. The left lobe was poorly seen because of body habitus. LIVER VASCULATURE: Normal directional flow of the main portal vein and hepatic veins. GALLBLADDER: No stones. Normal wall thickness. No pericholecystic fluid. ULTRASOUND-DETECTED JUAREZ'S SIGN: Negative. INTRAHEPATIC DUCTS AND COMMON DUCT: CBD and intrahepatic ducts normal caliber. No filling defects. INFERIOR VENA CAVA: Normal flow. AORTA: No aneurysm. RIGHT KIDNEY: Normal size, 12.4 cm. Normal echogenicity. No solid or suspicious masses. No hydroneph rosis. No calcifications. PERITONEAL AND RIGHT PLEURAL SPACE: No ascites or effusions. OTHER: No other significant findings. IMPRESSION: NORMAL RIGHT UPPER QUADRANT ULTRASOUND. TECHNICAL DOCUMENTATION: JOB ID: [id number] 2010 [employer]- All Rights Reserved Reading location - IP/workstation name: [email or web address]
== END ==
LOC: WI 09:31
PROVIDERS: ATTEND Family Medicine Geriatric Medicine
DX: R94.5 Abnormal results of liver function studies (principal)
CPT/HCPCS: 76705